=== PATIENT | male | born 1995 | race Caucasian/White ===

== ENCOUNTER 2023-07-21 06:39 | Emergency (ER) | payer OTHER, SELFPAY ==
--- NOTE | ~2023-07-21 | CT_ITS ---
CT Facial Bones Clinical Indication: Trauma Technique: Contiguous axial scans were obtained through the facial bones followed by coronal and sagi ttal reconstructions. Dose reduction technique was used on this scan by utilizing automated exposure control and iterative reconstruction technique. The dose-length product (DLP) was 298.92 mGy-cm. Findings: Questionable minimally displaced right nasal bone fracture. No other fracture identified. T he visualized paranasal sinuses are clear. Intraorbital soft tissues appear normal. Impression: Questionable minimally displaced right nasal bone fracture. Reviewed, dictated and finalized at location [facility]. [facility] [employer] Impression: Questionable minimally displaced right nasal bone fracture.
[2023-07-21 06:48] VITALS: BP 138/82; PULSE 80; RESP 20; TEMP 36.4; O2SAT 100
[2023-07-21 06:56] VITALS: BP 138/82; PULSE 83; RESP 18; TEMP 36.8; O2SAT 100
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
== END 2023-07-21 08:34 | disposition home or self-care (01) ==
PROVIDERS: Emergency Provider Emergency Medicine
DX: S02.2XXA Fracture of nasal bones, initial encounter for closed fracture (principal); V47.5XXA Car driver injured in collision with fixed or stationary object in traffic accident, initial encounter
CPT/HCPCS: 70486; 99284